=== PATIENT | female | born 2000 | race Hispanic/Latino ===

== ENCOUNTER 2022-01-28 17:21 | Emergency (ER) | payer OTHER, SELFPAY ==
--- NOTE | 2022-01-28 17:23 | ED.CHESTPAIN ---
HPI - Chest Pain General Chief Complaint: Nausea/Vomiting/Diarrhea Stated Complaint: Chest Pain,Vomiting Time Seen by Provider: 01/28/22 17:23 Source: patient Mode of arrival: ambulatory Limitations: no limitations History of Present Illness HPI narrative: Ursula is a 21-year-old female patient presenting to the clinic today with complaints of chest pain and vomiting since last night. She reports symptoms started with a slight headache and vomiting last night and she developed chest pain this morning when she awoken. She is 5 to 6 months . She reports pain to the chest is worse with inspiration. She does not feel as though she aspirated while vomiting. She denies any fever or chills. She is having some left-sided flank pain. She denies feeling nauseous currently. No vomiting today Related Data Home Medications Medication Instructions Recorded Confirmed Alive Premium 1 tab-cap PO DAILY 01/28/22 01/28/22 Allergies Allergy/AdvReac Type Severity Reaction Status Date / Time No Known Allergies Allergy Verified 01/28/22 17:26 Review of Systems Review of Systems: Pertinent positives per HPI. Patient denies any fever, chills, rash, visual changes, dizziness, cough, runny nose, sore throat, shortness of breath,palpitations, nausea,diarrhea, constipation, abdominal pain, or any urinary issues. PMFSH Comments At the time of my signature, I reviewed and agree with the nursing past medical, surgical, social, and family history. There is no relevant family history pertinent to the patient complaint. Exam Narrative: General: Well-developed, well nourished, in no apparent distress Head: Normocephalic, atraumatic Eyes: Pupils equally round and reactive to light bilaterally, EOM intact, sclera and conjunctive clear, no discharge, lids normal Ears: TMs intact and clear, ear canals clear, no drainage, grossly hearing normal. Nose: Nares patent, no discharge, no inflammation, no sinus tenderness. Mouth: Oropharynx without lesions or masses, good dentition, MMM. Neck: Supple, trachea midline, no enlargement of anterior or posterior cervical nodes, no thyroid masses or goiter palpable. Chest: Normal appearance, even rise and fall of chest wall with respirations, tender to palpation over the mid and left chest wall Cardio: Regular rate and rhythm, s1 and s2 normal, no murmur appreciated. Resp: Clear to auscultation bilaterally anteriorly and posteriorly, no rhonchi, rales, wheezing or rubs Abdomen: Soft, pliable, nontender to light palpation, bowel sounds present all 4 quadrants, no organomegaly, positive left CVAT tenderness Course Course Emergency Course: Portions of this record may have been created with voice recognition software. Level of Care: Express Care Visit Vital Signs Vital signs: Vital Signs Temperature 37.0 C 01/28/22 17:30 Pulse Rate 107 H 01/28/22 17:30 Respiratory Rate 18 01/28/22 17:30 Blood Pressure 136/76 01/28/22 17:30 Pulse Oximetry 100 01/28/22 17:30 Oxygen Delivery Room Air 01/28/22 17:30 Temperature 37.0 C 01/28/22 17:30 Pulse Rate 107 H 01/28/22 17:30 Respiratory Rate 18 01/28/22 17:30 Blood Pressure 136/76 01/28/22 17:30 Pulse Oximetry 100 01/28/22 17:30 Oxygen Delivery Room Air 01/28/22 17:30 Vital signs reviewed MDM - Chest Pain MDM Narrative Medical decision making narrative: At the time of visit patient is resting comfortably on the exam table. Patient is 5 to 6 months . I suspect the patient has acute mild dehydration, vomiting with , chest wall pain due to inflammation from vomiting, and urinary tract infection. I will place the patient on a course of Keflex as well as giving her a prescription for some Zofran and encouraged her to drink plenty of fluids. Supportive measures were discussed with the patient she voiced understanding of discharge instructions and agrees to treatment plan Differential Di
[2022-01-28 17:30] VITALS: BP 136/76; PULSE 107; RESP 18; TEMP 37; O2SAT 100
--- NOTE | 2022-01-28 17:36 | ECG_ITS ---
Measurements Intervals [place] Rate: 110 P: 54 TN: 137 QRS: 64 QRSD: 83 T: 33 QT: 320 QTc: 433 Interpretive Statements SINUS TACHYCARDIA ABNORMAL RHYTHM ECG NO PREVIOUS ECG AVAILABLE FOR COMPARISON Electronically Signed On 01-29-2022 13:11:27 CDT by Dalia Sanabria M.D.
== END 2022-01-28 18:11 | disposition home or self-care (01) ==
PROVIDERS: Emergency Provider Nurse Practitioner Family
DX: O23.10 Infections of bladder in pregnancy, unspecified trimester (principal); N30.00 Acute cystitis without hematuria; O21.9 Vomiting of pregnancy, unspecified; Z3A.00 Weeks of gestation of pregnancy not specified
CPT/HCPCS: 81003; 87077; 87086; 87186; 93005; 99213; G0463

== ENCOUNTER 2022-06-07 14:03 | Outpatient (CLI) | payer OTHER, SELFPAY ==
--- NOTE | ~2022-06-07 | US_ITS ---
EXAMINATION: US OB limited w BPP DATE: 06/07/2022 15:32 INDICATION: Hypertension during third trimester . Assess biophysical profile and amniotic fl uid index. TECHNIQUE: Real-time pelvic ultrasound was performed. The interpreting radiologist was not present fo r the study. COMPARISON: None. FINDINGS: There is a single living fetus in breech presentation. The placenta is anterior. heart rate is 152 beats per minute (bpm). Amniotic fluid index measures 11.6 cm which is normal (5th%-95%: 7.2-22. 6 cm at 39 weeks estimated gestational age). Biophysical profile performed by the technologist: breathing (30 sec sustained breathing in 30 minutes): 2 out of 2 movement (3 gross body movements in 30 minutes): 2 out of 2 tone (one episode of bmunxqu-vdmoyenim-wldelyo limb movement): 2 out of 2 Amniotic fluid pocket (2 cm): 2 out of 2 Total score: 8 out of 8 IMPRESSION: 1. Single living fetus in breech presentation with heart rate of 152 bpm. 2. Biophysical profile 8 out of 8. 3. Normal amniotic fluid index of 11.6 cm . Reviewed, dictated and finalized at location A. ING SAW OPERATOR
[2022-06-07 14:36] VITALS: BP 140/91; PULSE 99
[2022-06-07 14:45] VITALS: BP 140/91; PULSE 104; PULSE 99
[2022-06-07 14:49] LABS: Basophils Percent Auto 0.2 % (0.2-1.2); Eosinophils Absolute Auto 0.1 K/mm3 (0-0.3); Eosinophils Percent Auto 0.6 % (0-4.4); Hemoglobin 12.4 g/dL (12.0-15.0); Immature Granulocyte Absolute 0.06 K/mm3 (0.00-0.031); Immature Granulocyte Percent A 0.7 % (0-0.5); Lymphocytes Absolute Auto 1.55 K/mm3 (0.9-3.2); Mean Corpuscular HGB Conc 32.6 g/dl (32-36); Mean Corpuscular Hemoglobin 26.7 pg (26-34); Mean Corpuscular Volume 81.7 fl (80-100); Mean Platelet Volume 11.1 fl (7.4-10.4); Monocytes Absolute Auto 1.1 K/mm3 (0.1-0.6); Monocytes Percent Auto 12.9 % (2.6-8.5); Neutrophils Absolute Auto 5.4 K/mm3 (1.3-6.7); Neutrophils Percent Auto 66.6 % (45.5-73.1); Platelet Count Result 223 k/mm3 (150-375); Red Blood Count 4.65 M/mm3 (4.2-5.4); Red Cell Distribution Width 16.5 % (11.5-14.5); White Blood Count 8.1 K/mm3 (4.5-10.0)
[2022-06-07 14:50] LABS: Creatinine Urine 53.5 mg/dL; Total Protein Urine Random 8 mg/dL; Ur Ttl Prot Creatinine Ratio 0.15 mg/mg (0-0.20)
[2022-06-07 14:54] LABS: Alanine Aminotransferase 15 U/L (6-35); Albumin Level 3.7 g/dL (3.5-5.1); Alkaline Phosphatase 194 U/L (38-126); Anion Gap 7 mmol/L (8-16); Aspartate Amino Transferase 18 U/L (14-36); Bilirubin,Total 0.4 mg/dL (0.2-1.3); Blood Urea Nitrogen 5 mg/dL (7-17); Carbon Dioxide 23 mmol/L (22-30); Chloride 104 mmol/L (98-107); Estimated Glomerular Filt Rate > 60; Glucose 104 mg/dL (65-110); Potassium 3.7 mmol/L (3.4-5.0); Sodium 134 mmol/L (137-145); Uric Acid 4.4 mg/dL (2.5-7.5)
[2022-06-07 15:00] VITALS: BP 138/90; PULSE 92
--- NOTE | 2022-06-07 15:25 | PC.NURSE ---
1510--Report to Dr. Arce re: lab results, reactive NST and fhr tracing. Orders for BPP with AMANDA.
== END 2022-06-07 15:40 | disposition home or self-care (01) ==
LOC: ANHOBOP 14:18 → ANHOBPP 14:22
PROVIDERS: Visit Provider Obstetrics & Gynecology
DX: O13.9 Gestational [pregnancy-induced] hypertension without significant proteinuria, unspecified trimester (principal); Z3A.00 Weeks of gestation of pregnancy not specified
CPT/HCPCS: 36415; 59025; 76815; 76819; 80053; 82570; 84156; 84550; 85025; 99199

== ENCOUNTER 2022-06-10 22:31 | Inpatient (IN) | payer OTHER, SELFPAY ==
[2022-06-11] VITALS (99 sets, daily range): BP systolic 114–196; BP diastolic 62–165; PULSE 78–125; RESP 13–20; TEMP 36.2–36.8; O2SAT 97–100; BMI 32.5
[2022-06-11 01:07] LABS: Basophils Percent Auto 0.2 % (0.2-1.2); Eosinophils Absolute Auto 0.1 K/mm3 (0-0.3); Eosinophils Percent Auto 0.8 % (0-4.4); Hematocrit 35.5 % (37.0-47.0); Hemoglobin 11.7 g/dL (12.0-15.0); Immature Granulocyte Absolute 0.07 K/mm3 (0.00-0.031); Immature Granulocyte Percent A 0.7 % (0-0.5); Lymphocytes Absolute Auto 2.38 K/mm3 (0.9-3.2); Lymphocytes Percent Auto 24.2 % (18.3-44.2); Mean Corpuscular Volume 81.8 fl (80-100); Mean Platelet Volume 11.7 fl (7.4-10.4); Monocytes Absolute Auto 1.4 K/mm3 (0.1-0.6); Monocytes Percent Auto 14.4 % (2.6-8.5); Neutrophils Absolute Auto 5.9 K/mm3 (1.3-6.7); Neutrophils Percent Auto 59.7 % (45.5-73.1); Platelet Count Result 202 k/mm3 (150-375); Red Blood Count 4.34 M/mm3 (4.2-5.4); Red Cell Distribution Width 16.5 % (11.5-14.5); White Blood Count 9.9 K/mm3 (4.5-10.0)
[2022-06-11 01:17] LABS: Alanine Aminotransferase 14 U/L (6-35); Albumin Level 3.5 g/dL (3.5-5.1); Alkaline Phosphatase 195 U/L (38-126); Anion Gap 6 mmol/L (8-16); Aspartate Amino Transferase 19 U/L (14-36); Bilirubin,Total 0.4 mg/dL (0.2-1.3); Blood Urea Nitrogen 8 mg/dL (7-17); Calcium 8.8 mg/dL (8.4-10.2); Carbon Dioxide 22 mmol/L (22-30); Chloride 106 mmol/L (98-107); Estimated Glomerular Filt Rate > 60; Glucose 82 mg/dL (65-110); Potassium 3.8 mmol/L (3.4-5.0); Sodium 134 mmol/L (137-145)
[2022-06-11 01:30] LABS: Uric Acid 3.9 mg/dL (2.5-7.5)
[2022-06-11] MEDS: OXYTOCIN 30 UNITS/NS 500 ML 30 UNITS/500 ML BAG IV CONT (01:43)
--- NOTE | 2022-06-11 01:53 | LDADM ---
This patient, Raiza Perez, was admitted to Labor/Delivery/Recovery 102 on 06/10/22 at 22:31. Plans for labor, pain management and were discussed with patient. Patient/family oriented to hospital policies and general routines including ID bracelet, bed and alarms, visiting hours, pain management, procedures, bathroom and other care routines, personal items, smoking policy, room service/diet and guest tray routines, security routines, and visiting hours. Patient/Family are encouraged to report perceived risks to care and to ask questions if they do not understand what they are told or what they should do. See OBIX for further documentation.
--- NOTE | 2022-06-11 05:46 | PC.NURSE ---
Dr. Arce called for update on patient. 2 severe blood pressures reviewed with Dr. Arce. Orders to send a protein/creatine ration. Orders to watch next blood pressure since her first severe BP was during her SVE.
--- NOTE | 2022-06-11 06:18 | WPDANESEPP ---
Anes - Eval Pre Procedure Procedure: labor epidural Date/Time: 06/11/22 06:18 Surgeon: jessi Preop Diagnosis: pain during labor Pre Op Diagnosis: Contractions Patient Data Age: 21 Gender: F Height: 1.63 m Weight: 86 kg Last Vital Signs Temp 36.2 C L 06/11/22 05:35 Pulse 90 06/11/22 06:16 BP 147/93 H 06/11/22 06:16 O2 Del Method Room Air 06/11/22 01:52 Allergies Allergy/AdvReac Type Severity Reaction Status Date / Time No Known Allergies Allergy Verified 06/11/22 01:50 Home Medications Medication Instructions Recorded Confirmed Type Alive Premium 1 tab-cap PO DAILY 01/28/22 06/11/22 History Laboratory Tests 06/11/22 06/11/22 06/11/22 00:58 00:58 00:58 WBC 9.9 K/mm3 K/mm3 (4.5-10.0) RBC 4.34 M/mm3 M/mm3 (4.2-5.4) Hgb 11.7 g/dL L g/dL (12.0-15.0) Hct 35.5 % L % (37.0-47.0) MCV 81.8 fl fl (80-100) MCH 27.0 pg pg (26-34) MCHC 33.0 g/dl g/dl (32-36) RDW 16.5 % H % (11.5-14.5) Plt Count 202 k/mm3 k/mm3 (150-375) MPV 11.7 fl H fl (7.4-10.4) Immature Gran % (Auto) 0.7 % H % (0-0.5) Neut % (Auto) 59.7 % % (45.5-73.1) Lymph % (Auto) 24.2 % % (18.3-44.2) [place] % (Auto) 14.4 % H % (2.6-8.5) Eos % (Auto) 0.8 % % (0-4.4) Baso % (Auto) 0.2 % % (0.2-1.2) Lymph # (Auto) 2.38 K/mm3 K/mm3 (0.9-3.2) [place] # (Auto) 1.4 K/mm3 H K/mm3 (0.1-0.6) Eos # (Auto) 0.1 K/mm3 K/mm3 (0-0.3) Baso # (Auto) 0.0 K/mm3 K/mm3 (0.0-0.1) Abs Immat Gran (auto) 0.07 K/mm3 H K/mm3 (0.00-0.031) Absolute Neuts (auto) 5.9 K/mm3 K/mm3 (1.3-6.7) Absolute Nucleated RBC 0.0 K/mm3 K/mm3 (0.0-0.012) Nucleated RBC % 0.0 % % (0.0-0.2) Sodium 134 mmol/L L mmol/L (137-145) Potassium 3.8 mmol/L mmol/L (3.4-5.0) Chloride 106 mmol/L mmol/L (98-107) Carbon Dioxide 22 mmol/L mmol/L (22-30) Anion Gap 6 mmol/L L mmol/L (8-16) BUN 8 mg/dL mg/dL (7-17) Creatinine 0.40 mg/dL L mg/dL (0.7-1.0) Estim Creat Clear Calc Not Reportable Estimated GFR > 60 (59 - ) Glucose 82 mg/dL mg/dL (65-110) Uric Acid 3.9 mg/dL mg/dL (2.5-7.5) Calcium 8.8 mg/dL mg/dL (8.4-10.2) Total Bilirubin 0.4 mg/dL mg/dL (0.2-1.3) AST 19 U/L U/L (14-36) ALT 14 U/L U/L (6-35) Alkaline Phosphatase 195 U/L H U/L (38-126) Total Protein 6.0 g/dL L g/dL (6.3-8.2) Albumin 3.5 g/dL g/dL (3.5-5.1) U Random Total Protein Urine Creatinine Protein/Creat Ratio 2 RPR Blood Type Antibody Screen 06/11/22 06/11/22 06/11/22 00:58 00:58 06:03 WBC RBC Hgb Hct MCV MCH MCHC RDW Plt Count MPV Immature Gran % (Auto) Neut % (Auto) Lymph % (Auto) [place] % (Auto) Eos % (Auto) Baso % (Auto) Lymph # (Auto) [place] # (Auto) Eos # (Auto) Baso # (Auto) Abs Immat Gran (auto) Absolute Neuts (auto) Absolute Nucleated RBC Nucleated RBC % Sodium Potassium Chloride Carbon Dioxide Anion Gap BUN Creatinine Estim Creat Clear Calc Estimated GFR Glucose Uric Acid Calcium Total Bilirubin AST ALT Alkaline Phosphatase Total Protein Albumin
[2022-06-11 06:25] LABS: Creatinine Urine 62.3 mg/dL; Total Protein Urine Random 7 mg/dL; Ur Ttl Prot Creatinine Ratio 0.11 mg/mg (0-0.20)
--- NOTE | 2022-06-11 06:53 | PM.IMHP ---
H&P: HPI History of Present Illness Date/Time: 06/11/22 06:53 Chief Complaint: elevated BPs Narrative: Raiza is a 21yo G1 who presented with contractions last night that resolved but had elevated BPs, some with diastolics in 100s, so she stayed for induction of labor. Had two back to back severe pressures while having cervix checked overnight, otherwise have all been normal or mildly elevated. Denies sx of PreE, labs normal, PC ratio pending. Review of Systems Review of Systems: All systems reviewed & are unremarkable except as noted in HPI and below PMFSH Past Medical History Medical History (Updated 06/11/22 @ 06:55 by January Arce MD) IUP (intrauterine ), incidental Surgical History Surgical History (Updated 06/11/22 @ 06:19 by Josefina Marti CRNA) H/O brain surgery Family History Family History (Updated 05/15/22 @ 12:46 by Melissa Victor RN) Father Hypertension Diabetes mellitus Mother Hypertension Social History Social History Smoking status: Never smoker Substance use: never Lack of Transportation: No Lack of Food: Never True Current Housing: I Have Housing Concerned About Future Housing: No Difficulty Paying Gas/Electric Bills: No Difficulty Paying for Meds: No Currently Unemployed: No Education: High School Diploma/GED Difficulty w/ Childcare or Family Care: No Spiritual care concerns: No Meds Home Medications and Allergies Home Medications Medication Instructions Recorded Confirmed Type Alive Premium 1 tab-cap PO DAILY 01/28/22 06/11/22 History Allergies Allergy/AdvReac Type Severity Reaction Status Date / Time No Known Allergies Allergy Verified 06/11/22 01:50 Vital Signs Vital Signs - 24 hr 06/11/22 00:30 06/11/22 01:01 06/11/22 01:30 Temperature Pulse Rate 89 94 88 Blood Pressure 136/97 H 141/92 H 128/67 Oxygen Delivery 06/11/22 02:00 06/11/22 02:30 06/11/22 03:00 Temperature 97.3 F L Pulse Rate 91 91 97 Blood Pressure 130/84 124/69 132/81 Oxygen Delivery 06/11/22 03:30 06/11/22 04:00 06/11/22 04:30 Temperature Pulse Rate 87 88 104 H Blood Pressure 115/67 115/78 142/91 H Oxygen Delivery 06/11/22 05:16 06/11/22 05:31 06/11/22 05:35 Temperature 97.2 F L Pulse Rate 95 93 Blood Pressure 148/62 H 176/102 H Oxygen Delivery 06/11/22 05:46 06/11/22 06:01 06/11/22 06:16 Temperature Pulse Rate 93 95 90 Blood Pressure 164/98 H 144/93 H 147/93 H Oxygen Delivery 06/11/22 06:31 06/11/22 06:46 06/11/22 01:52 Temperature Pulse Rate 93 117 H Blood Pressure 147/91 H 136/93 H Oxygen Delivery Room Air Exam Const: General: no acute distress Resp: Effort & Inspection: normal respiratory effort Auscultation: clear to auscultation bilaterally Cardio: Rate: regular rate Rhythm: regular rhythm GI: GI Palp: Yes Soft to palpation Extrem: General: normal to inspection H&P: Results Labs Labs: Short CBC 06/11/22 Range/Units 00:58 WBC 9.9 (4.5-10.0) K/mm3 Hgb 11.7 L (12.0-15.0) g/dL Hct 35.5 L (37.0-47.0) % Plt Count 202 (150-375) k/mm3 [facility] 06/11/22 00:58 Sodium 134 L Potassium 3.8 Chloride 106 Carbon Dioxide 22 BUN 8 Creatinine 0.40 L Glucose 82 Calcium 8.8 Liver Function 06/11/22 Range/Units 00:58 Total Bilirubin 0.4 (0.2-1.3) mg/dL AST 19 (14-36) U/L ALT 14 (6-35) U/L Alkaline Phosphatase 195 H (38-126) U/L Albumin 3.5 (3.5-5.1) g/dL Assessment and Plan Assessment and plan (1) Gestational hypertension: Code(s): O13.9 - Gestational [-induced] hypertension without significant proteinuria, unspecified trimester Status: Acute Plan IOL with pitocin AROM clear, 5 cm FHT category 1 GBS neg magnesium if further severe pressures PC ratio pending
--- NOTE | 2022-06-11 07:13 | P.PNOB_ITS ---
OB - PN: Subj Subjective Date/time seen: 06/11/22 07:13 Patient comments: no complaints and pain well controlled baby status: doing well and bottle feeding well Narrative: Would like DC home today. OB - PN: Obj Data Labs 06/11/22 00:58 06/11/22 00:58 Labs: Laboratory Results - last 24 hr 06/11/22 06/11/22 06/11/22 00:58 00:58 00:58 WBC 9.9 RBC 4.34 Hgb 11.7 L Hct 35.5 L MCV 81.8 MCH 27.0 MCHC 33.0 RDW 16.5 H Plt Count 202 MPV 11.7 H Immature Gran % (Auto) 0.7 H Neut % (Auto) 59.7 Lymph % (Auto) 24.2 [place] % (Auto) 14.4 H Eos % (Auto) 0.8 Baso % (Auto) 0.2 Lymph # (Auto) 2.38 [place] # (Auto) 1.4 H Eos # (Auto) 0.1 Baso # (Auto) 0.0 Abs Immat Gran (auto) 0.07 H Absolute Neuts (auto) 5.9 Absolute Nucleated RBC 0.0 Nucleated RBC % 0.0 Sodium 134 L Potassium 3.8 Chloride 106 Carbon Dioxide 22 Anion Gap 6 L BUN 8 Creatinine 0.40 L Estim Creat Clear Calc Not Reportable Estimated GFR > 60 Glucose 82 Uric Acid 3.9 Calcium 8.8 Total Bilirubin 0.4 AST 19 ALT 14 Alkaline Phosphatase 195 H Total Protein 6.0 L Albumin 3.5 U Random Total Protein Urine Creatinine Blood Type Antibody Screen 06/11/22 06/11/22 00:58 06:03 WBC RBC Hgb Hct MCV MCH MCHC RDW Plt Count MPV Immature Gran % (Auto) Neut % (Auto) Lymph % (Auto) [place] % (Auto) Eos % (Auto) Baso % (Auto) Lymph # (Auto) [place] # (Auto) Eos # (Auto) Baso # (Auto) Abs Immat Gran (auto) Absolute Neuts (auto) Absolute Nucleated RBC Nucleated RBC % Sodium Potassium Chloride Carbon Dioxide Anion Gap BUN Creatinine Estim Creat Clear Calc Estimated GFR Glucose Uric Acid Calcium Total Bilirubin AST ALT Alkaline Phosphatase Total Protein Albumin U Random Total Protein 7 Urine Creatinine 62.3 Blood Type O Positive Antibody Screen Negative OB - PN A/P Plan day: 1 Plan: routine care and discharge home Comments: circumcision done after consenting. home if ok with peds (GBS pos, adequately treated) Time Spent With Patient Time: Total time spent is greater than 50% in coordination of care (as documented) at patient's floor/unit and/or counseling patient: Time with patient: less than 15 minutes Exam Narrative: NAD abdomen soft, nontender, fundus firm below the umbilicus Extremities nontender, 1+ edema
--- NOTE | 2022-06-11 07:17 | PM.OBDSVD ---
DS: Admitting Diagnosis Discharge Date 06/14/22 Admitting Diagnosis term IUP DS: Discharge Diagnosis Discharge Diagnosis (1) delivery delivered: Code(s): O82 - Encounter for delivery without indication Status: Acute OB - DS: Summary Hospital Course Hospital Course: Raiza was admitted for elective IOL, but was found to be breech, so she had a primary CS. Her post op course was uncomplicated and she was discharged home on POD 3. She did receive IV iron for anemia. OB Procedures : Ultrasound OB Procedures Intrapartum: OB Procedures: : None Peripartum Data Infant Delivery Method: Section complications: none Status at Discharge Functional status at discharge: independent ambulation Time Spent with Patient Time attestation: Total time spent providing and/or coordinating discharge services: Exam Narrative: NAD abdomen soft, appropriately tender Ext non tender, 1+ edema DS: Data Data Completed and Pending Labs on day of discharge: Labs from last 24 hours 06/11/22 06/11/22 06/11/22 06:03 00:58 00:58 WBC RBC Hgb Hct MCV MCH MCHC RDW Plt Count MPV Immature Gran % (Auto) Neut % (Auto) Lymph % (Auto) [place] % (Auto) Eos % (Auto) Baso % (Auto) Lymph # (Auto) [place] # (Auto) Eos # (Auto) Baso # (Auto) Abs Immat Gran (auto) Absolute Neuts (auto) Absolute Nucleated RBC Nucleated RBC % Sodium Potassium Chloride Carbon Dioxide Anion Gap BUN Creatinine Estim Creat Clear Calc Estimated GFR Glucose Uric Acid Calcium Total Bilirubin AST ALT Alkaline Phosphatase Total Protein Albumin U Random Total Protein 7 Urine Creatinine 62.3 Protein/Creat Ratio 2 Pending RPR Pending Blood Type O Positive Antibody Screen Negative 06/11/22 06/11/22 06/11/22 00:58 00:58 00:58 WBC 9.9 RBC 4.34 Hgb 11.7 L Hct 35.5 L MCV 81.8 MCH 27.0 MCHC 33.0 RDW 16.5 H Plt Count 202 MPV 11.7 H Immature Gran % (Auto) 0.7 H Neut % (Auto) 59.7 Lymph % (Auto) 24.2 [place] % (Auto) 14.4 H Eos % (Auto) 0.8 Baso % (Auto) 0.2 Lymph # (Auto) 2.38 [place] # (Auto) 1.4 H Eos # (Auto) 0.1 Baso # (Auto) 0.0 Abs Immat Gran (auto) 0.07 H Absolute Neuts (auto) 5.9 Absolute Nucleated RBC 0.0 Nucleated RBC % 0.0 Sodium 134 L Potassium 3.8 Chloride 106 Carbon Dioxide 22 Anion Gap 6 L BUN 8 Creatinine 0.40 L Estim Creat Clear Calc Not Reportable Estimated GFR > 60 Glucose 82 Uric Acid 3.9 Calcium 8.8 Total Bilirubin 0.4 AST 19 ALT 14 Alkaline Phosphatase 195 H Total Protein 6.0 L Albumin 3.5 U Random Total Protein Urine Creatinine Protein/Creat Ratio 2 RPR Blood Type Antibody Screen Discharge Plan Discharge Attending physician on discharge: January Arce Discharging Clinician: January Arce Anticipated Discharge Date/Time: 06/14/22 08:44 Patient Disposition: Home, Self-Care Activity: may drive after 2 weeks and pelvic rest Diet: regular Patient Instructions: Antibiotic Form Stand Alone Forms: General Discharge Information Follow-up/Referrals: January Arce MD [Physician] - 4 Weeks Discharge Medications: New hydrocodone-acetaminophen 5-325 mg Tablet 1 tablet PO Q4-5H PRN (Reason: Moderate Pain (4-6)) Qty: 40 0RF docusate sodium 100 mg Capsule 100 mg PO BID PRN (Reason: Constipation) Qty: 60 0RF ibuprofen 600 mg Tablet 600 mg PO Q6H PRN (Reason: Cramping) Qty: 60 0RF Continued Alive Premium 1 tab-cap PO DAILY Date of admission: 06/10/22 22:31 Primary Care Provider: PHYSICIAN,DIRECTOR CAMP Admitting Provider: January Arce Attending physician on admission: January Arce Condition: Stable
[2022-06-11] MEDS: fentaNYL CITRATE INJ (*CRX) 100 MCG/2 ML VIAL 50 MCG IV PUSH (07:23)
[2022-06-11] MEDS: LACTATED RINGERS 500 ML 999 ML IV CONT (07:25)
--- NOTE | 2022-06-11 09:53 | WPDHPUPDATE1 ---
History and Physical Update Update Date/Time: 06/11/22 09:53 History and Physical has been reviewed, including an updated exam of the patient. Breech, verified with US. Will proceed with primary CS. Discussed RBA with pt, consented. Will proceed. Risks, benefits, and alternatives have been discussed and questions answered. Patient agrees to proceed with procedure.
[2022-06-11 10:35] LABS: Rapid Plasma Reagin Non-Reactive (NonReactive)
[2022-06-11] MEDS: KETOROLAC 30 MG/ML VIAL (*BKC) IV PUSH ×2 (10:50→16:06)
--- NOTE | 2022-06-11 10:57 | PM.OBPRVD ---
OB - Delivery Note Procedure Delivery date: 06/11/22 Procedure: Procedures Operation Date: 06/11/22 09:45 <No data on this case meets the specified criteria> Primary low transverse section Events: Breech Presentation Induction method: Per Pitocin Protocol Delivery augmentation: Rupture of Membranes Route of delivery: Specimen: Yes (placenta) Quantitative Blood Loss (ml): 1,015 Anesthesia type: Epidural Disposition: Floor Complications: none Narrative: The patient was taken to the OR and had her epidural anesthesia dosed adequately. She was placed in dorsal supine position with left lateral tilt. SCDs and fields had been placed. She was prepped and draped in the normal sterile fashion. A Pfannensteil skin incision was made and carried through to the underlying layer of fascia. The fascia was incised in the midline and then extended laterally using Wiley scissors. The muscles were in the midline and the peritoneum was entered bluntly. The peritoneal incision was extended inferiorly and superiorly with care to avoid the bladder. The bladder blade was then inserted, the vesicouterine peritoneum was grasped, incised with Metzenbaum scissors, and a bladder flap created. The bladder blade was reinserted. A low transverse uterine incision was made with a scalpel and extended bluntly. AROM was performed and fluid was noted to be clear. The baby was delivered in breech presentation without difficulty. The baby's oropharynx was suctioned. After 30 seconds, the cord was clamped and cut and the infant was handed off. Cord blood was obtained and the placenta was then removed manually. The uterus was exteriorized. A moist lap sponge was used to curette the endometrium. The uterine incision was then closed with two layers of 0-Vicryl in a running, locking fashion. Good hemostasis was noted. The posterior cul de sac was irrigated with normal saline and cleared of all clot and debris. The uterus was returned to the abdomen. Both lateral gutters were then irrigated. The rectus muscles were inspected and found to be hemostatic. The fascia was reapproximated using 0-Vicryl in running fashion. The subcutaneous tissue was irrigated with normal saline and made hemostatic with Bovie electrocautery. The skin was then closed with absorbable sydni. Steri strips and a bandage were applied. The uterus was evacuated. The patient tolerated the procedure very well. All counts were correct. She was taken to the recovery room in good condition. Baby Date of : 06/11/22 Time of : 10:27 Weeks of gestation at delivery: 40 Infant gender: Male Weight (pounds): 9 Weight (ounces): 5 presentation: breech Placenta delivery description: Manual Removal Cord Vessel Description: 3 Vessels score one minute: 8 score five minutes: 9
[2022-06-11] MEDS: fentaNYL CITRATE INJ (*CRX) 100 MCG/2 ML VIAL IV PUSH ×4 (12:13→13:02)
[2022-06-11] MEDS: HYDROcodone/acetaminophen (*CRX) 10-325 MG TABLET 1 TAB PO ×3 (14:15→23:22)
[2022-06-11] MEDS: SIMETHICONE 80 MG TAB.CHEW PO (16:07)
[2022-06-11] MEDS: DEXTROSE 5%/0.45% SOD CHL 1,000 ML 125 ML IV CONT (17:15)
[2022-06-11] MEDS: DOCUSATE SODIUM 100 MG CAPSULE PO (17:15)
[2022-06-11] MEDS: IBUPROFEN 600 MG TABLET PO (23:22)
[2022-06-12 03:55] VITALS: BP 128/85; PULSE 87; RESP 16; TEMP 36.6
[2022-06-12] MEDS: HYDROcodone/acetaminophen (*CRX) 10-325 MG TABLET 1 TAB PO ×5 (03:55→23:15)
[2022-06-12 05:27] LABS: Basophils Percent Auto 0.2 % (0.2-1.2); Eosinophils Absolute Auto 0.1 K/mm3 (0-0.3); Eosinophils Percent Auto 0.5 % (0-4.4); Hematocrit 26.2 % (37.0-47.0); Hemoglobin 8.3 g/dL (12.0-15.0); Immature Granulocyte Absolute 0.08 K/mm3 (0.00-0.031); Immature Granulocyte Percent A 0.7 % (0-0.5); Lymphocytes Absolute Auto 1.67 K/mm3 (0.9-3.2); Lymphocytes Percent Auto 14.4 % (18.3-44.2); Mean Corpuscular HGB Conc 31.7 g/dl (32-36); Mean Corpuscular Hemoglobin 26.5 pg (26-34); Mean Corpuscular Volume 83.7 fl (80-100); Mean Platelet Volume 12.7 fl (7.4-10.4); Monocytes Absolute Auto 1.2 K/mm3 (0.1-0.6); Monocytes Percent Auto 10.1 % (2.6-8.5); Neutrophils Absolute Auto 8.6 K/mm3 (1.3-6.7); Neutrophils Percent Auto 74.1 % (45.5-73.1); Platelet Count Result 151 k/mm3 (150-375); Red Blood Count 3.13 M/mm3 (4.2-5.4); Red Cell Distribution Width 17.1 % (11.5-14.5); White Blood Count 11.6 K/mm3 (4.5-10.0)
--- NOTE | 2022-06-12 07:23 | P.PNOB_ITS ---
OB - PN: Subj Subjective Date/time seen: 06/12/22 07:23 Patient comments: no complaints and incisional pain baby status: doing well [place] feeding status: exclusively breast feeding Narrative: POD 1 from primary CS. Doing well. Normal lochia. Eating, ambulating, fields out. Baby not latching well. OB - PN: Obj Data Labs 06/12/22 03:48 06/11/22 00:58 Labs: Laboratory Results - last 24 hr 06/11/22 06/12/22 00:58 03:48 WBC 11.6 H RBC 3.13 L Hgb 8.3 L D Hct 26.2 L MCV 83.7 MCH 26.5 MCHC 31.7 L RDW 17.1 H Plt Count 151 MPV 12.7 H Immature Gran % (Auto) 0.7 H Neut % (Auto) 74.1 H Lymph % (Auto) 14.4 L [place] % (Auto) 10.1 H Eos % (Auto) 0.5 Baso % (Auto) 0.2 Lymph # (Auto) 1.67 [place] # (Auto) 1.2 H Eos # (Auto) 0.1 Baso # (Auto) 0.0 Abs Immat Gran (auto) 0.08 H Absolute Neuts (auto) 8.6 H Absolute Nucleated RBC 0.0 Nucleated RBC % 0.0 RPR Non-reactive OB - PN A/P Assessment and Plan (1) delivery delivered: Code(s): O82 - Encounter for delivery without indication Status: Acute (2) Anemia due to blood loss: Code(s): D50.0 - Iron deficiency anemia secondary to blood loss (chronic) Status: Acute Plan day: 1 Plan: routine care Comments: venofer home friday probably consult Time Spent With Patient Time: Total time spent is greater than 50% in coordination of care (as documented) at patient's floor/unit and/or counseling patient: Exam Narrative: NAD abdomen soft, appropriately tender, incision bandaged Extremities nontender with 1+ edema
[2022-06-12] MEDS: IBUPROFEN 600 MG TABLET PO ×3 (07:30→20:16)
[2022-06-12] MEDS: MULTIVIT/MIN/PREN/FOL AC/IRON TABLET 1 TAB PO (07:30)
[2022-06-12] MEDS: SIMETHICONE 80 MG TAB.CHEW PO ×5 (07:30→23:15)
[2022-06-12] MEDS: POLYSACCHARIDE IRON COMPLEX 150 MG CAPSULE PO ×2 (07:30→17:15)
[2022-06-12] MEDS: DOCUSATE SODIUM 100 MG CAPSULE PO ×2 (07:30→17:15)
[2022-06-12 08:00] VITALS: BP 122/85; PULSE 104; RESP 16; TEMP 37.2; O2SAT 99
[2022-06-12] MEDS: IRON SUCROSE COMPLEX 200 MG in SODIUM CHLORIDE 0.9% IV 50 ML 120 MG IVPB (09:45)
[2022-06-12] MEDS: SODIUM CHLORIDE 0.9% IV 250 ML 25 ML (10:11)
[2022-06-12 12:20] VITALS: BP 128/77; PULSE 64; RESP 18; TEMP 36.6; O2SAT 98
--- NOTE | 2022-06-12 13:03 | PC.NURSE ---
0820 - Infant is in the nursery. 0971 - Primary RN is assisting patient in the restroom. [id number] Introductions were made, then consulted with patient to assess needs related to . Mother led the conversation with her?plans to feed?her infant and the?experience so far. Resources provided for inpatient and outpatient services with the feeding sheet and mom/baby guide. Mother voiced understanding of information and requests assistance because her infant will not wake up to breastfeed. Mother led the conversation with her?plans to feed?her and the?experience so far. Mother works well with her with encouragement and education. Encouraged understanding of the benefits of skin to skin (demonstrating unwrapping and placing upright on her chest), stimulating with massage touch, changing positions to encourage wakefulness, how to watch for early feeding cues, responsive feeding, feeding on demand (aiming for 8-12 times in 24 hours, about every 2-3 hours), milk production, building/maintaining a milk supply, duration of feeding, signs of adequate intake/output and how to record on the feeding sheet. Reviewed positioning and ear, shoulder, hip alignment, supporting the breast to facilitate a deep latch, asymmetrical latch (off-center), leading with the chin with a big, open, wide gape and body close to mother. Infant latched optimally to the right breast in football position. Education given to mother of how to visualize suck/swallow ratios and listen for drinking at the breast. Infant was able to maintain latch without discomfort to mother for 30 minutes. Nipple care reviewed with optimal latch and good positioning. Reviewed good handwashing when or touching the breast/nipples to prevent infection. Resources used to facilitate learning were used with the visual handouts, QR codes, tool, mom and baby guide. Mother voiced understanding of skin to skin, stimulating with massage touch, responsive feedings, hand expressed colostrum, talking to infant to encourage if it has been 2 -2.5 hours since the start of the last , to call if does not latch, or if there is discomfort with . Resources provided for inpatient/outpatient with the feeding sheet and the mom/baby guide. Mother voiced understanding of information, demonstrated learning and will call if there is a request for assistance. [phone] Mother called related to unable to latch to the left breast to offer the other side. Attempted to latch to the left breast. Infant appears to be content with arms and hands relaxed. Large transitional stool diaper changed and another attempt was made and infant is sleepy. Reviewed with mother stimulating with massage touch, responsive feedings, hand expressed colostrum, talking to to encourage if it has been 2 -2.5 hours since the start of the last , to call if does not latch, or if there is discomfort with . Mother voiced understanding of the education. Reported to the primary RN.
--- NOTE | 2022-06-12 14:16 | WPDANLDPN2 ---
Anes-Prog Note L&D Date/Time: 06/12/22 14:16 Neuro status: Neuro function grossly intact. Vital Signs: Last Vital Signs Temp 36.6 C 06/12/22 12:20 Pulse 64 06/12/22 12:20 Resp 18 06/12/22 12:20 BP 128/77 06/12/22 12:20 Pulse Ox 98 06/12/22 12:20 O2 Del Method Room Air 06/12/22 08:00 Pain score (VAS): 0 I/O: Intake & Output 06/11/22 06/12/22 06/12/22 23:59 07:59 15:59 Intake Total 2120 700 480 Output Total 150 1000 Balance 1970 -300 480 Patient feedback: Patient satisfied with anesthetic care.
--- NOTE | 2022-06-12 14:17 | WPDANLDNPN2 ---
Anes-Prog Note L&D-Neuraxial Date/Time: 06/12/22 14:17 Patient feedback: Patient satisfied with post-operative pain management.
[2022-06-12] MEDS: HYDROcodone/acetaminophen (*CRX) 5-325 MG TABLET 1 TAB PO ×2 (14:30→20:16)
--- NOTE | 2022-06-12 14:50 | PC.NURSE ---
[id number] Consulted with patient to assess needs related to after being called for assistance. Mother works well with her . Encouraged skin to skin and stimulating for wakefulness. Reviewed positioning and alignment, supporting breast, off-centered (asymmetrical latch) and leading with the chin with big, open, wide gape. latched optimally to the left breast in football and cross cradle position. Infant would not maintain on the left breast even with milk able to be hand expressed. After on/off 15 minutes on the left breast, was offered the right breast and maintained an optimal latch using the football positioning. Education given to mother of how to visualize suck/swallow ratios and listen for drinking at the breast. Infant was able to maintain latch without discomfort to mother and swallowing visualized. Nipple care reviewed with optimal latch, good positioning and using clean hands when feeding her and touching her breast. Resources used to facilitate learning were used from the mom and baby guide. Mother voiced understanding of the education shared, to call for assistance if the does not latch or if there is discomfort with . Reported to the primary RN.
[2022-06-12 17:15] VITALS: BP 121/71; PULSE 97; RESP 18; TEMP 37; O2SAT 98
[2022-06-12 19:03] VITALS: BP 122/79; PULSE 100; RESP 16; TEMP 36.4
[2022-06-12 23:15] VITALS: BP 126/79; PULSE 107; RESP 16; TEMP 36.5
[2022-06-13] MEDS: SIMETHICONE 80 MG TAB.CHEW PO (02:22)
[2022-06-13] MEDS: HYDROcodone/acetaminophen (*CRX) 5-325 MG TABLET 1 TAB PO ×4 (02:22→23:31)
[2022-06-13] MEDS: IBUPROFEN 600 MG TABLET PO ×4 (02:22→20:30)
[2022-06-13 05:25] VITALS: BP 119/64; PULSE 92; RESP 16; TEMP 36
[2022-06-13] MEDS: HYDROcodone/acetaminophen (*CRX) 10-325 MG TABLET 1 TAB PO ×3 (05:25→17:20)
[2022-06-13 07:30] VITALS: BP 143/86; PULSE 105; RESP 16; TEMP 36.9; O2SAT 100
--- NOTE | 2022-06-13 07:59 | P.PNOB_ITS ---
OB - PN: Subj Subjective Date/time seen: 06/13/22 07:59 Patient comments: no complaints, pain well controlled, tolerating diet and flatus present [place] baby status: doing well OB - PN: Obj Data Labs 06/12/22 03:48 06/11/22 00:58 OB - PN A/P Plan day: 1 Plan: routine care Comments: Iron infusion today. Will anticipate discharge tomorrow. Time Spent With Patient Time: Total time spent is greater than 50% in coordination of care (as documented) at patient's floor/unit and/or counseling patient: Time with patient: less than 15 minutes Review of Systems Review of Systems: All systems reviewed & are unremarkable except as noted in HPI and below Exam Narrative: Fundus firm. Vaginal flow controlled. Incision dry and intact. Negative homans. No redness, warmth, or pain of lower ext. Const: General: comfortable Chest: Breast/axilla inspection: normal inspection of the breasts Resp: Effort & Inspection: normal respiratory effort Auscultation: clear to auscultation bilaterally Cardio: Rate: regular rate GI: GI Palp: Yes Soft to palpation Psych: Appearance: grossly normal Affect: normal affect Attitude: cooperative Thought content: Yes Normal thought content present Judgement: Good judgement present (Psych)
[2022-06-13] MEDS: POLYSACCHARIDE IRON COMPLEX 150 MG CAPSULE PO ×2 (08:11→17:20)
[2022-06-13] MEDS: MULTIVIT/MIN/PREN/FOL AC/IRON TABLET 1 TAB PO (08:11)
[2022-06-13] MEDS: DOCUSATE SODIUM 100 MG CAPSULE PO ×2 (08:11→17:20)
[2022-06-13] MEDS: IRON SUCROSE COMPLEX 200 MG in SODIUM CHLORIDE 0.9% IV 50 ML 120 MG IVPB (09:24)
[2022-06-13 13:00] VITALS: BP 135/87; PULSE 108; RESP 16; TEMP 36.3; O2SAT 100
[2022-06-13] MEDS: TETANUS,DIPHTHERIA,AC PERTUSSIS ADULT (0.5 ML) BOOSTRIX IM (13:31)
--- NOTE | 2022-06-13 14:08 | PC.NURSE ---
0880 - Consulted with patient to assess needs. Mother states she just breastfed at 0700 and will call for the next session. [id number] Consulted with patient to assess needs related to . Mother led conversation with her experience with feeding baby so far. Mother works well with her infant with encouragement. Reviewed working with infant, supporting breast and how to protect the nipples with an optimal deep latch, good positioning, and good hand washing. Encouraged understanding the benefits of skin to skin, responding to feeding cues, frequencies of feeding 8-12 times in 24 hours (approximately 2-3 hours), duration of feedings, milk production, intake/output feeding sheet and signs of adequate intake encouraging swallowing at the breast. Reviewed positioning and alignment, supporting breast, off-centered (asymmetrical latch) and leading with the chin with big, open, wide gape. Infant latched optimally to the left breast in football position. Education given to mother of how to visualize suck/swallow ratios and listen for drinking at the breast. Infant was able to maintain latch without discomfort to mother. Nipple care reviewed with optimal latch, good positioning and using clean hands when feeding her and touching her breast. Encouraged mother, father and infant to actively eat. Encouraged mother to also hydrate. Resources used to facilitate learning were used from the visual handout, tool, mom and baby guide. Mother voiced understanding of the education shared, to call for assistance if the infant does not latch or if there is discomfort with . Reported to the primary RN. [id number] is not attempting to breastfeed at this time. Encouraged the maternal mother to comfort while mother takes a nap. [id number] Purposely rounded to assess needs. Mother works well with her infant with encouragement. Reviewed working with infant, supporting breast and how to protect the nipples with an optimal deep latch, good positioning, and good hand washing. Encouraged understanding the benefits of skin to skin, responding to feeding cues, milk production, hand expression and 1/2 tsp was spoon fed to the , then latched to the right breast using football positioning. Reviewed positioning and alignment, supporting breast, off-centered (asymmetrical latch) and leading with the chin with big, open, wide gape. Reviewed education of how to visualize suck/swallow ratios and listen for drinking at the breast. Infant was able to maintain latch without discomfort to mother. Mother is tired. Mother was encouraged and support persons encouraged as they demonstrate supporting measures to mother. Nipple care reviewed with optimal latch, good positioning and using clean hands when feeding her and touching her breast. Mother voiced understanding of the education shared, to call for assistance if the does not latch or if there is discomfort with . Reported to the primary RN.
[2022-06-13 16:30] VITALS: BP 122/77; PULSE 106; RESP 16; TEMP 36.8; O2SAT 99
[2022-06-13 20:10] VITALS: BP 131/77; PULSE 109; RESP 16; TEMP 37.2
[2022-06-14] MEDS: HYDROcodone/acetaminophen (*CRX) 5-325 MG TABLET 1 TAB PO ×2 (05:11→13:33)
[2022-06-14] MEDS: IBUPROFEN 600 MG TABLET PO ×2 (05:11→13:34)
[2022-06-14 07:30] VITALS: BP 122/63; PULSE 98; RESP 16; TEMP 36.8; O2SAT 100
--- NOTE | 2022-06-14 08:43 | P.PNOB_ITS ---
OB - PN: Subj Subjective Date/time seen: 06/14/22 08:43 Patient comments: no complaints and pain well controlled baby status: doing well and nursing well [place] feeding status: breast and bottle feeding Narrative: would like DC home today. OB - PN: Obj Data Labs 06/12/22 03:48 06/11/22 00:58 OB - PN A/P Plan day: 3 Plan: routine care and discharge home Comments: s/p IV iron home today DC instructions given Time Spent With Patient Time: Total time spent is greater than 50% in coordination of care (as documented) at patient's floor/unit and/or counseling patient: Exam Narrative: NAD abdomen soft, appropriately tender, incision CDI Extremities nontender with 1+ edema
[2022-06-14 09:00] VITALS: PULSE 98; RESP 16; O2SAT 100
[2022-06-14] MEDS: SIMETHICONE 80 MG TAB.CHEW PO ×2 (09:00→13:34)
[2022-06-14] MEDS: DOCUSATE SODIUM 100 MG CAPSULE PO (09:00)
[2022-06-14] MEDS: HYDROcodone/acetaminophen (*CRX) 10-325 MG TABLET 1 TAB PO (09:00)
[2022-06-14] MEDS: POLYSACCHARIDE IRON COMPLEX 150 MG CAPSULE PO (09:00)
[2022-06-14] MEDS: MEASLES,MUMPS,RUBELLA VACCINE 0.5 ML VIAL SUB-Q (09:00)
[2022-06-14] MEDS: MULTIVIT/MIN/PREN/FOL AC/IRON TABLET 1 TAB PO (09:00)
[2022-06-14 12:14] VITALS: BP 134/65; PULSE 97; RESP 16; TEMP 36.6; O2SAT 100
--- NOTE | 2022-06-14 12:21 | PC.NURSE ---
Patient viewed the discharge video Mother & Baby Care, The First Two Weeks in [place] with maternal grandmother. Patient was given the opportunity and encouraged to ask questions. Patient verbalized understanding of information shared and has been given the mother/baby guide for home reference.
--- NOTE | 2022-06-14 12:44 | PC.NURSE ---
[id number] Mother led the conversation with her experience last night and her decision to bottle feed her infant after and being inconsolable. She is confident in her ability to independently latch infant optimally without discomfort, pump if infant doesn't latch, then supplement to feed infant until her milk is to full volume. Reminded parents to use good handwashing technique to prevent infection. Mother is feeding appropriately for growth of infant and understands stimulating to eat if needed. has had appropriate feedings in the last 24 hours meets the outcomes for weight, output and jaundice at this time. Mother states she is confident to continue feeding her infant at home, when to call for assistance and denies any additional assistance or education at this time. Reinforced understanding of milk production, transition of milk, signs of adequate intake, transition of stool, prevention/relief of engorgement, responsive watching for feeding cues, the different methods of stimulating infant to breastfeed 2-3 hours after the start of the last feeding, paced bottle feeding, community resources, medication information reviewed per [facility] and when to call a provider using the resource of the hand out for paced bottle feeding, mom and baby guide/[facility] website. Mother voiced understanding of the education shared.
== END 2022-06-14 14:45 | disposition home or self-care (01) | DRG 540 ==
LOC: ANHLDR 06-11 07:17 → ANHOB2 06-11 13:30
PROVIDERS: Admitting Provider Obstetrics & Gynecology; Visit Provider Obstetrics & Gynecology
PROC: 10D00Z1 Extraction of Products of Conception, Low, Open Approach (ICD-10-PCS; CPT 59514; principal; 2022-06-11 09:45)
DX: O13.4 Gestational [pregnancy-induced] hypertension without significant proteinuria, complicating childbirth (principal); Z37.0 Single live birth; Z3A.39 39 weeks gestation of pregnancy; O32.1XX0 Maternal care for breech presentation, not applicable or unspecified; O90.81 Anemia of the puerperium; D62 Acute posthemorrhagic anemia; O36.8330 Maternal care for abnormalities of the fetal heart rate or rhythm, third trimester, not applicable or unspecified
CPT/HCPCS: 36415; 80053; 82570; 84156; 84550; 85025; 86592; 86850; 86900; 86901; 90710; 90715; A9270; J0131; J1756; J1885; J2274; J2405; J2590; J2795; J3010; J7050; J7120

== ENCOUNTER 2022-08-18 10:23 | Emergency (ER) | payer OTHER, SELFPAY ==
--- NOTE | 2022-08-18 10:28 | ED.URI ---
HPI - URI/Sore Throat General Chief Complaint: Ear Stated Complaint: Right Ear Irritation Time Seen by Provider: 08/18/22 10:28 Source: patient, RN notes reviewed and old records reviewed Mode of arrival: ambulatory Limitations: no limitations History of Present Illness HPI Narrative: 21-year-old female presents to the [facility] with complaints of right ear pain since , 3 days. Has been taken ibuprofen Currently Denies fevers. No other treatment prior to arrival. Denies any other signs or symptoms Onset (ago): day(s) (3) Related Data Allergies Allergy/AdvReac Type Severity Reaction Status Date / Time No Known Allergies Allergy Verified 08/18/22 10:29 Review of Systems Review of Systems: All systems reviewed & are unremarkable except as noted in HPI and below Constitutional: Constitutional: Reports no additional constitutional complaints Eyes: Eyes: Reports no additional eye complaints ENT: Reports as per HPI and Reports otalgia Cardiovascular: Cardiovascular: Reports no additional cardiovascular complaints, Denies chest pain and Denies dyspnea Respiratory: Respiratory: Reports no additional respiratory complaints, Denies chest congestion, Denies cough and Denies dyspnea Gastrointestinal: Gastrointestinal: Reports no additional gastrointestinal complaints, Denies abdominal pain, Denies nausea and Denies vomiting Musculoskeletal: Musculoskeletal: Reports no additional musculoskeletal complaints Integumentary/Breasts: Skin/Breast: Reports system reviewed and no additional complaints, except as docu Neurologic: Reports system reviewed and no additional complaints, except as documented Psychiatric: Psychiatric: Reports no additional psychiatric complaints Allergic/Immunologic: Allergic/Immunologic: Reports no additional allergic/immunologic complaints PMFSH Past Medical History Medical History IUP (intrauterine ), incidental Surgical History Surgical History H/O brain surgery Family History Family History Father Hypertension Diabetes mellitus Mother Hypertension Social History Social History Smoking status: Never smoker Substance use: never Lack of Transportation: No Lack of Food: Never True Current Housing: I Have Housing Concerned About Future Housing: No Difficulty Paying Gas/Electric Bills: No Difficulty Paying for Meds: No Currently Unemployed: No Education: High School Diploma/GED Difficulty w/ Childcare or Family Care: No Spiritual care concerns: No Comments At the time of my signature, I reviewed and agree with the nursing past medical, surgical, social, and family history. There is no relevant family history pertinent to the patient complaint. Exam Const: General: cooperative, healthy appearing, comfortable, no acute distress, well developed, alert and well nourished Nutritional Appearance: well nourished Orientation/consciousness: patient oriented x3 Limitations: no limitations HENMT: Head: normal to inspection Ears: hearing grossly normal bilaterally, external ears normal, TM normal on the left, EAC's normal, mastoids abnormal, no periauricular adenopathy and TM abnormal bulging on the right and erythematous on the right Face/Nose/Sinus: Normal external nose present, Normal nares present, Normal nasal mucous membranes and turbinates present and normal facial exam Face and sinus: normal facial exam Mouth: Yes Normal oral and palatal mucosa present, Yes lip normal and Yes moist mucous membranes Throat: posterior oropharynx normal and uvula midline Eyes: General: appearance normal, both eyes and all related structures Alignment and Position: alignment normal Periorbital: periorbital findings normal Conjunctivae: co
[2022-08-18 10:30] VITALS: BP 113/75; PULSE 79; RESP 18; TEMP 36.6; O2SAT 100
== END 2022-08-18 10:39 | disposition home or self-care (01) ==
PROVIDERS: Emergency Provider Nurse Practitioner
DX: H66.91 Otitis media, unspecified, right ear (principal)
CPT/HCPCS: 99213; G0463

== ENCOUNTER 2023-03-25 18:54 | Emergency (ER) | payer OTHER, SELFPAY ==
--- NOTE | 2023-03-25 19:01 | ED.ABDPAIN ---
HPI - Abdominal Pain General Chief Complaint: Abdominal Pain Stated Complaint: Abdominal Pain Time Seen by Provider: 03/25/23 19:21 Source: patient and RN notes reviewed Mode of arrival: ambulatory Limitations: no limitations History of Present Illness HPI narrative: 22-year-old female presents concern for right upper quadrant abdominal pain and nausea. Reports symptoms started this morning. She reports she has also started having body aches this morning. She denies diarrhea, she had a normal bowel movement yesterday. She denies urine frequency, urgency, dysuria. She is currently breast-feeding a 9-month-old baby. She denies any breast tenderness, warmth, swelling. She denies upper respiratory infection symptoms such as runny nose, stuffy nose, sore throat, headache. She reports the pain is constant but has intermittent fluctuations of severity without exacerbating or relieving factors. MD elicited complaint: abdominal pain Related Data Allergies Allergy/AdvReac Type Severity Reaction Status Date / Time No Known Allergies Allergy Verified 08/18/22 10:29 Review of Systems Review of Systems: CONSTITUTIONAL: Denies malaise, chills, sweats, or fever. ENT: Denies rhinorrhea, congestion, sinus pain, otalgia or sore throat. CARDIOVASCULAR: Denies chest pain, palpitations, or edema. RESPIRATORY: Denies cough or dyspnea. GASTROINTESTINAL: Reports right upper quadrant abdominal pain, nausea, vomiting. Denies diarrhea, bloody, or mucous stools. GENITOURINARY: Denies dysuria or hematuria. MUSCULOSKELETAL: Reports myalgia. NEUROLOGIC: Denies headache. All systems reviewed & are unremarkable except as noted in HPI and below PMFSH Past Medical History Medical History IUP (intrauterine ), incidental Surgical History Surgical History H/O brain surgery Family History Family History Father Hypertension Diabetes mellitus Mother Hypertension Social History Social History Smoking status: Never smoker Substance use: never Lack of Transportation: No Lack of Food: Never True Current Housing: I Have Housing Concerned About Future Housing: No Difficulty Paying Gas/Electric Bills: No Difficulty Paying for Meds: No Currently Unemployed: No Education: High School Diploma/GED Difficulty w/ Childcare or Family Care: No Spiritual care concerns: No Comments At time of signature, agree with nursing past medical, surgical, social and family history. There is no relevant family history pertinent to the presenting complaint Exam Narrative: GENERAL: Well-appearing, well-nourished, and in no acute distress. HEAD: Normocephalic, atraumatic. EYES: PERRLA, conjunctivae clear, and EOMI. ENT: Nares clear, turbinates pink, no rhinorrhea or epistaxis. Mucous membranes moist. Oropharynx without edema, erythema, or lesions. Tonsils not enlarged and without exudate. NECK: Supple. No lymphadenopathy CHEST: Speaks in full sentences. No respiratory distress. HEART: Regular rate and rhythm. ABDOMEN: Soft, flat, nondistended. General abdominal tenderness. No guarding, rebound tenderness, or rigidity. No pulsatile masses. Bowel sounds present in all four quadrants. No organomegaly. No periumbilical tenderness. No Supra public tenderness or distension. SKIN: Warm, dry, no rash. NEURO: Alert and oriented x3. PSYCH: Normal mood and affect Course Course Emergency Course: I advised patient that based on her exam and tenderness she should seek further evaluation in the emergency room. Patient states that she will go to the emergency room but she will not go until the morning. I advised patient that if her symptoms worsen she should go to the emergency room right away. Anticipatory guidance g
[2023-03-25 19:13] VITALS: BP 123/69; PULSE 73; RESP 16; TEMP 37.4; O2SAT 100
== END 2023-03-25 19:53 | disposition home or self-care (01) ==
PROVIDERS: Emergency Provider Nurse Practitioner
DX: R10.11 Right upper quadrant pain (principal)
CPT/HCPCS: 81003; 99212; G0463

== ENCOUNTER 2023-03-26 13:25 | Emergency (ER) | payer OTHER, SELFPAY | END 2023-03-26 13:53 | disposition left against medical advice (07) | LOC: ANHED 13:46 | DX: Z53.21 Procedure and treatment not carried out due to patient leaving prior to being seen by health care provider (principal) | CPT/HCPCS: 99199 ==

== ENCOUNTER 2024-03-04 17:52 | Emergency (ER) | payer OTHER, SELFPAY ==
--- NOTE | ~2024-03-04 | CT_ITS ---
CLINICAL INDICATION: Abdominal pain nausea and vomiting COMPARISON: . TECHNIQUE: Multiple contiguous axial images of the abdomen and pelvis were performed following the ad ministration of with 100 mL Omnipaque-350 intravenous contrast The dose-length product (DLP) was 608.37 mGy-cm. Automated exposure control and iterative reconstruction technique were employed. FINDINGS/OBSERVATIONS: Visualized lower thorax: The bilateral lung bases are clear. The heart is of normal size, without pericardial effusion. Small hiatal hernia is present. Liver: The liver enhances homogeneously, and is enlarged measuring 21 cm in longitudinal dimension Gallbladder and biliary system: The gallbladder is only minimally distended, and otherwise unremarkable. Pancreas: The pancreas enhances homogeneously without ductal dilatation. Spleen: The spleen enhances homogeneously and is not enlarged measuring 6 cm in longitudinal dimension. Kidneys: The bilateral kidneys enhance symmetrically without hydronephrosis or renal calculi. Adrenal glands: Unremarkable. Gastrointestinal tract: Trace fecal stasis. Appendix: The air-filled appendix is of normal caliber (axial series, image 142) Vasculature: Unremarkable. Lymph nodes: No pathologically enlarged or morphologically suspicious lymph nodes within the retroperitoneum or at the root of the mesentery. Pelvic structures: An oval shaped focus of fluid attenuation is identified within the right hemipelvis measuring 32 x 20 x 38 mm, most consistent with a right ovarian cyst. The uterus is anteverted and anteflexed, and otherwise unremarkable. The bladder is decompressed, and otherwise unremarkable. Body wall and musculoskeletal: No significant degenerative disease within the lower thoracic or lumbosacral spine. IMPRESSION: Hepatomegaly. Right ovarian cyst measuring 3.8 cm in greatest dimension. No additional abnormalities identified Reviewed, dictated and finalized at location A. UNT MANAGER TRAINEE
--- NOTE | ~2024-03-04 | US_ITS ---
EXAM: PELVIC ULTRASOUND HISTORY: lower abd pain, r ovarian cyst COMPARISON: Reference is made to a CT examination of the abdomen and pelvis, performed on the same da y. FINDINGS: UTERUS: 7.5 x 2.7 x 4.8 cm. The uterus is anteverted and anteflexed. The endometrial complex measures 3 mm. RIGHT OVARY: The right ovary is increased in size and heterogeneous in echogenicity measuring 4.2 x 2.8 x 2.8 cm. Arterial and venous flow are identified. A single anechoic avascular focus is identified within the right ovary 2.9 x 2.4 x 2.1 cm, representi ng a simple cyst (perhaps an involuting follicle) for which no further follow-up is needed. LEFT OVARY: The left ovary is unremarkable in echogenicity and size measuring 3.1 x 1.8 x 2.1 cm Both arterial and venous flow are identified. No free fluid is identified within the pelvis. IMPRESSION: Single simple cyst/involuting follicle within the right ovary which is a benign finding in the physi ologic normal range for which no further follow-up is needed. Otherwise, unremarkable sonographic evaluation of the pelvis, as detailed above. Reviewed, dictated and finalized at location A. OLOGY RESEARCH ASSISTANT IMPRESSION: Single simple cyst/involuting follicle within the right ovary which is a benign finding in the physiologic normal range for which no further follow-up is nee ded. Otherwise, unremarkable sonographic evaluation of the pelvis, as detailed above .
[2024-03-04 18:02] VITALS: BP 152/67; PULSE 87; RESP 18; TEMP 36.1; O2SAT 100
[2024-03-04 19:43] VITALS: BP 113/72; PULSE 79; RESP 16; TEMP 36.8; O2SAT 98
[2024-03-04 20:03] VITALS: BP 113/72; PULSE 80; RESP 16; TEMP 36.8; O2SAT 98
[2024-03-04 20:24] LABS: Add Urine Microscopic? YES; Appearance Urine Clear (Clear); Bacteria Urine None Seen /hpf; Bilirubin Urine Negative (Negative); Blood Urine 1+ (Negative); Color Urine Yellow (Yellow); Glucose Urine UA Negative (Negative); Ketones Urine Trace mg/dL (Negative); Leukocyte Esterase Ur Negative LEU/UL (Negative); Nitrate Urine Negative (Negative); Non Pathogenic Casts 0-2; Protein Urine Negative (Negative); RBC Urine 0-2 /hpf (0-2); Specific Grav Ur 1.031 (1.001-1.035); Squamous Epithelial Cell Urine Occasional /hpf (Few); WBC Urine 0-5 /hpf (0-3)
[2024-03-04 20:55] LABS: Influenza A QL RT-PCR Negative (Negative); Influenza B QL RT-PCR Negative (Negative); RSV RNA, RT-PCR Negative (Negative); SARS-CoV-2 RNA PCR Negative (Negative)
[2024-03-04 21:23] LABS: Basophils Percent Auto 0.4 % (0.2-1.2); Eosinophils Absolute Auto 0.1 K/mm3 (0-0.3); Eosinophils Percent Auto 1.7 % (0-4.4); Hematocrit 42.4 % (37.0-47.0); Hemoglobin 14.5 g/dL (12.0-15.0); Immature Granulocyte Absolute 0.01 K/mm3 (0.00-0.031); Immature Granulocyte Percent A 0.1 % (0-0.5); Lymphocytes Absolute Auto 2.85 K/mm3 (0.9-3.2); Lymphocytes Percent Auto 34.3 % (18.3-44.2); Mean Corpuscular HGB Conc 34.2 g/dl (32-36); Mean Corpuscular Hemoglobin 31.1 pg (26-34); Mean Platelet Volume 9.8 fl (7.4-10.4); Monocytes Absolute Auto 0.6 K/mm3 (0.1-0.6); Monocytes Percent Auto 7.7 % (2.6-8.5); Neutrophils Absolute Auto 4.6 K/mm3 (1.3-6.7); Neutrophils Percent Auto 55.8 % (45.5-73.1); Platelet Count Result 355 k/mm3 (150-375); Red Blood Count 4.66 M/mm3 (4.2-5.4); Red Cell Distribution Width 13.2 % (11.5-14.5); White Blood Count 8.3 K/mm3 (4.5-10.0)
--- NOTE | 2024-03-04 21:24 | ED_ITS ---
HPI - Nausea/Vomiting/Diarrhea General Chief complaint: Nausea/Vomiting/Diarrhea Stated complaint: N/V, fatigue Time Seen by Provider: 03/04/24 19:51 Source: patient Mode of arrival: ambulatory Limitations: no limitations History of Present Illness HPI Narrative: Patient is a 23-year-old female who presents the ED with reports of fatigue, nausea, vomiting. Patient reports she has not felt well and felt extremely fatigued states over the last 1 week. She then began having nausea and vomiting yesterday. She reports decreased p.o. intake today with nausea, but denies further vomiting. Reports some lower abdominal cramping. Notes she is currently on her menstrual cycle. Denies fevers. Denies cough or cold symptoms. Denies urinary complaints. Related Data Allergies Allergy/AdvReac Type Severity Reaction Status Date / Time No Known Allergies Allergy Verified 08/18/22 10:29 Review of Systems Review of Systems: All systems reviewed & are unremarkable except as noted in HPI. All systems reviewed & are unremarkable except as noted in HPI and below PMFSH Past Medical History Medical History IUP (intrauterine ), incidental Surgical History Surgical History H/O brain surgery Family History Family History Father Hypertension Diabetes mellitus Mother Hypertension Social History Social History Smoking status: Never smoker Substance use: never Lack of Transportation: No Lack of Food: Never True Current Housing: I Have Housing Concerned About Future Housing: No Difficulty Paying Gas/Electric Bills: No Difficulty Paying for Meds: No Currently Unemployed: No Education: High School Diploma/GED Difficulty w/ Childcare or Family Care: No Spiritual care concerns: No Exam Narrative: GENERAL: Well appearing, well-nourished, non-toxic, in no acute distress. HEAD: Normocephalic, atraumatic. RESPIRATORY: Airway patent, respirations nonlabored. Clear to auscultation bilaterally, no rales, rhonchi, wheezing. CARDIOVASCULAR: Regular rate and rhythm without murmurs, rubs, or gallops. ABDOMINAL: Soft, mild diffuse tenderness throughout lower abdomen, nondistended. Normoactive BS. MUSCULOSKELETAL: Moves all extremities. No gross deformities. SKIN: Warm, dry, normal color. NEURO: A&O X3. Speech clear. PSYCHIATRIC: Appropriate mood and affect. Normal interaction. Course Vital Signs Vital signs: Vital Signs Temperature 97.0 F L 03/04/24 18:02 Pulse Rate 87 03/04/24 18:02 Respiratory Rate 18 03/04/24 18:02 Blood Pressure 152/67 H 03/04/24 18:02 Pulse Oximetry 100 03/04/24 18:02 Oxygen Delivery Room Air 03/04/24 18:02 Temperature 98.3 F 03/04/24 22:47 Pulse Rate 77 03/04/24 22:47 Respiratory Rate 16 03/04/24 22:47 Blood Pressure 122/77 03/04/24 22:47 Pulse Oximetry 100 03/04/24 22:47 Oxygen Delivery Room Air 03/04/24 19:43 MDM - Nausea/Vomiting/Diarrhea MDM Narrative Medical decision making narrative: Patient presented to ED with fatigue, nausea, vomiting, lower abdominal discomfort. Vital signs are stable upon arrival. Patient is afebrile here. Fluids initiated. Viral swabs are negative. Urine with trace ketones, no signs of infection. Basic laboratory studies are unremarkable. No leukocytosis. Stable H&H. Stable electrolytes. TSH within normal range. CT scan of abdomen/pelvis was obtained and without significant abnormalities. Does show a right-sided ovarian cyst. With patient having lower abdominal pain and ovarian cyst on CT, will obtain ultrasound to further evaluate and rule out torsion. U ltrasound showing simple cyst, no evidence for torsion. No other abnormalities noted. No free fluid. Discussed lab and imaging findings with patient. She is feeling better after fluids. Patient will be discharged. Advised to stay well hydrated. Will prescribe Zofran for home. Recommended Tylenol/ibuprofen as needed for pain. Recommended follow-up with OBGYN for further evaluation and continued management of ovarian cyst. Given return precautions. Discharged in stable condition. Medical Records Attestation: I reviewed the patient's medical records. Lab Data Attestation: I reviewed the patient's lab results. 03/04/24 21:17 03/04/24 21:17 Labs: Lab Results 03/04/24 03/04/24 03/04/24 Range/Units 20:00 21:17 21:46 WBC 8.3 (4.5-10.0) K/mm3 RBC 4.66 (4.2-5.4) M/mm3 Hgb 14.5 D (12.0-15.0) g/dL Hct 42.4 (37.0-47.0) % MCV 91.0 (80-100) fl MCH 31.1 (26-34) pg MCHC 34.2 (32-36) g/dl RDW 13.2 (11.5-14.5) % Plt Count 355 D (150-375) k/mm3 MPV 9.8 (7.4-10.4) fl Immature Gran % (Auto) 0.1 (0-0.5) % Neut % (Auto) 55.8 (45.5-73.1) % Lymph % (Auto) 34.3 (18.3-44.2) % [place] % (Auto) 7.7 (2.6-8.5) % Eos % (Auto) 1.7 (0-4.4) % Baso % (Auto) 0.4 (0.2-1.2) % Lymph # (Auto) 2.85 (0.9-3.2) K/mm3 [place] # (Auto) 0.6 (0.1-0.6) K/mm3 Eos # (Auto) 0.1 (0-0.3) K/mm3 Baso # (Auto) 0.0 (0.0-0.1) K/mm3 Abs Immat Gran (auto) 0.01 (0.00-0.031) K/mm3 Absolute Neuts (auto) 4.6 (1.3-6.7) K/mm3 Absolute Nucleated RBC 0.000 (0.0-0.012) K/mm3 Nucleated RBC % 0.0 (0.0-0.2) % Sodium 139 (137-145) mmol/L Potassium 4.1 (3.4-5.0) mmol/L Chloride 101 (98-107) mmol/L Carbon Dioxide 28 (22-30) mmol/L Anion Gap 10 (4-12) mmol/L BUN 21 H D (7-17) mg/dL Creatinine 0.60 L (0.7-1.0) mg/dL Estim Creat Clear Calc 122 ml/min Estimated GFR > 60 (59 - ) Glucose 90 (65-110) mg/dL Calcium 9.4 (8.4-10.2) mg/dL Magnesium 2.2 (1.6-2.3) mg/dL Total Bilirubin 0.8 (0.2-1.3) mg/dL AST 20 (14-36) U/L ALT 18 (6-35) U/L Alkaline Phosphatase 111 (38-126) U/L Total Protein 8.0 (6.3-8.2) g/dL Albumin 4.8 (3.5-5.1) g/dL Lipase 63 (23-300) U/L TSH (Reflex) 1.310 (0.465-4.68) uIU/mL Urine Color Yellow (Yellow) Urine Appearance Clear (Clear) Urine pH 7.0 (5.0-9.0) Ur Specific [place] 1.031 (1.001-1.035) Urine Protein Negative (Negative) mg/dL Urine Glucose (UA) Negative (Negative) mg/dL Urine Ketones Trace H (Negative) mg/dL Ur Blood (Man) 1+ H (Negative) Urine Nitrate Negative (Negative) Urine Bilirubin Negative (Negative) Urine Urobilinogen 1.0 (<2.0) mg/dL Leukocyte Esterase Rfl Negative (Negative) JESUS MANUEL/UL Urine RBC 0-2 (0-2) /hpf Urine WBC 0-5 (0-3) /hpf Ur Squamous Epith Cells Occasional (Few) /hpf Urine Bacteria None seen /hpf Urine Casts 0-2 POC Urine HCG, Qual Negative (Negative) Influenza A (RT-PCR) Negative (Negative) Influenza B (RT-PCR) Negative (Negative) RSV (RT-PCR) Negative (Negative) SARS-CoV-2 RNA (RT-PCR) Negative (Negative) Imaging Data Attestation: I personally reviewed and interpreted this imaging study as follows: Radiologist's impression: ITS Impressions Abdomen/Pelvis CT 03/04/24 22:04 IMPRESSION: Hepatomegaly. Right ovarian cyst measuring 3.8 cm in greatest dimension. No additional abnormalities identified Transvaginal US 03/04/24 23:30 IMPRESSION: Single simple cyst/involuting follicle within the right ovary which is a benign finding in the physiologic normal range for which no further follow-up is needed. Otherwise, unremarkable sonographic evaluation of the pelvis, as detailed above. Discharge Plan Discharge Clinical Impression: Lower abdominal pain Fatigue Qualifiers: Fatigue type: unspecified Qualified Code(s): R53.83 - Other fatigue Ovarian cyst Qualifiers: Laterality: right Qualified Code(s): N83.201 - Unspecified ovarian cyst, right side Patient Disposition: Home, Self-Care Condition: Stable Instructions: Antibiotic Form, Ovarian Cyst (ED), Dehydration (ED), Abdominal Pain (ED) Additional Instructions: Your work up here was reassuring. You do have evidence of a right sided ovarian cyst. Stay well hydrated. Continue Tylenol and ibuprofen as needed for pain. Zofran as needed for further nausea. Follow-up with OBGYN for further evaluation and management of ovarian cyst. Return to the ED if you experience worsening or severe pain, unable to keep down food or drink, persistent fevers, passing out, or any other symptoms of concern. Prescriptions: New ondansetron 4 mg tablet,disintegrating 4 mg PO Q8H PRN (Reason: nausea and vomiting) Qty: 10 0RF Follow-up/Referrals: PHYSICIAN,DIETARY DIRECTOR [Primary Care Provider] - Time of Disposition: 23:41
[2024-03-04 21:35] LABS: Alanine Aminotransferase 18 U/L (6-35); Albumin Level 4.8 g/dL (3.5-5.1); Alkaline Phosphatase 111 U/L (38-126); Anion Gap 10 mmol/L (4-12); Aspartate Amino Transferase 20 U/L (14-36); Bilirubin,Total 0.8 mg/dL (0.2-1.3); Blood Urea Nitrogen 21 mg/dL (7-17); Calcium 9.4 mg/dL (8.4-10.2); Carbon Dioxide 28 mmol/L (22-30); Chloride 101 mmol/L (98-107); Estimated CRCL calculation 122 ml/min; Estimated Glomerular Filt Rate > 60; Glucose 90 mg/dL (65-110); Lipase 63 U/L (23-300); Magnesium 2.2 mg/dL (1.6-2.3); Potassium 4.1 mmol/L (3.4-5.0); Sodium 139 mmol/L (137-145)
[2024-03-04] MEDS: SODIUM CHLORIDE 0.9% IV 1,000 ML 999 ML IV CONT (21:36)
[2024-03-04 21:40] VITALS: BP 137/85; PULSE 74; RESP 16; TEMP 37.3; O2SAT 99
[2024-03-04 21:48] LABS: BEDSIDEPREGUCG Negative (Negative)
[2024-03-04 22:47] VITALS: BP 122/77; PULSE 77; RESP 16; TEMP 36.8; O2SAT 100
== END 2024-03-04 23:46 | disposition home or self-care (01) ==
PROVIDERS: Emergency Provider Physician Assistant
DX: N83.291 Other ovarian cyst, right side (principal); R10.30 Lower abdominal pain, unspecified; R53.83 Other fatigue; R16.0 Hepatomegaly, not elsewhere classified
CPT/HCPCS: 36415; 74177; 76830; 80053; 81001; 81025; 83690; 83735; 84443; 85025; 87637; 96360; 99284; J7030; Q9967

== ENCOUNTER 2024-07-05 17:24 | Emergency (ER) | payer OTHER, SELFPAY ==
--- NOTE | 2024-07-05 17:29 | ED_ITS ---
HPI - URI/Sore Throat General Chief Complaint: Upper Respiratory Infection Stated Complaint: cough,ALBRIGHT,sinus pressure,chest congestion Time Seen by Provider: 07/05/24 17:29 Source: patient Mode of arrival: ambulatory Limitations: no limitations History of Present Illness HPI Narrative: Patient 23-year-old female who presents with 5 days of congestion and sinus pressure/pain. Patient also had headache. Denies any fever, chills, nausea, vomiting, diarrhea, sore throat, ear pain. Has not taken anything for symptoms. Related Data Allergies Allergy/AdvReac Type Severity Reaction Status Date / Time No Known Allergies Allergy Verified 08/18/22 10:29 Review of Systems Review of Systems: All systems reviewed & are unremarkable except as noted in HPI and below Constitutional: Constitutional: Denies chills, Denies fatigue, Denies fever(s), Reports headache(s), Denies malaise and Denies weakness Eyes: Eyes: Denies blurry vision, Denies itchy eyes and Denies loss of vision ENT: Denies otalgia, Reports headache(s), Reports nasal congestion, Reports sinus pain, Reports sinus pressure and Denies sore throat Cardiovascular: Cardiovascular: Denies chest pain, Denies irregular heart rhythm and Denies dyspnea Respiratory: Respiratory: Reports cough and Denies dyspnea Gastrointestinal: Gastrointestinal: Denies abdominal pain, Denies diarrhea, Denies nausea and Denies vomiting Musculoskeletal: Musculoskeletal: Denies back pain, Denies myalgias and Denies arthralgias Integumentary/Breasts: Skin/Breast: Denies pruritus and Denies rash Neurologic: Reports headache(s), Denies loss of vision and Denies weakness Psychiatric: Psychiatric: Reports no additional psychiatric complaints Endocrine: Endocrine: Denies fatigue Allergic/Immunologic: Allergic/Immunologic: Denies itchy eyes PMFSH Past Medical History Medical History IUP (intrauterine ), incidental Surgical History Surgical History H/O brain surgery Family History Family History Father Hypertension Diabetes mellitus Mother Hypertension Social History Social History Smoking status: Never smoker Substance use: never Lack of Transportation: No Lack of Food: Never True Current Housing: I Have Housing Concerned About Future Housing: No Difficulty Paying Gas/Electric Bills: No Difficulty Paying for Meds: No Currently Unemployed: No Education: High School Diploma/GED Difficulty w/ Childcare or Family Care: No Spiritual care concerns: No Comments At time of signature, agree with nursing past medical, surgical, social and family history. There is no relevant family history pertinent to the presenting complaint. Exam Const: General: cooperative, healthy appearing, comfortable, no acute distress and well nourished Nutritional Appearance: well nourished Orientation/consciousness: patient oriented x3 Limitations: no limitations HENMT: Head: normal to inspection, normocephalic and atraumatic Ears: hearing grossly normal bilaterally, external ears normal, TM's normal bilaterally, EAC's normal and no periauricular adenopathy Face/Nose/Sinus: Normal external nose present, Abnormal mucous membranes and turbinates present erythematous bilateral and diffuse, normal facial exam, face symmetric and Facial tenderness on exam of face and sinuses Face and sinus: normal facial exam and face symmetric Mouth: Yes Normal oral and palatal mucosa present, Yes lip normal, Yes tongue normal, Yes Normal salivary glands and ducts present, Yes oropharynx normal and Yes moist mucous membranes Teeth and gingiva: dentition normal Throat: posterior oropharynx normal, tonsils normal and uvula midline Eyes: General: appearance normal, both eyes and all related structures Alignment and Position: alignment normal and position normal Periorbital: periorbital findings normal Eyelids: eyelids normal Pupils: Equal, round and reactive pupils present Neck: Neck: normal visual inspection, full ROM, no lymphadenopathy and supple Chest: Chest palpation & inspection: normal inspection of the chest and normal palpation of entire chest wall Resp: Effort & Inspection: normal respiratory effort and able to speak in complete sentences Auscultation: clear to auscultation bilaterally, no crackles, no rales, no rhonchi and no wheezes Cardio: Rate: regular rate Rhythm: regular rhythm Heart sounds: S1 normal heart sound present and S2 normal heart sound present GI: Inspection: normal to inspection Skin: General skin exam: normal color and no rashes or lesions noted Neuro: General: patient oriented x3 and moves all extremities Cranial nerves: Yes Equal, round and reactive pupils present Speech: normal speech Gait exam (Neuro): Normal gait present Extrem: General: normal to inspection, full ROM and no edema Psych: Appearance: grossly normal and well kempt Mental Status: mental status grossly normal Speech and movement: Normal speech and movement present Affect: normal affect Attitude: cooperative Thought process: Normal thought process present Course Course Emergency Course: Discharge instructions reviewed with patient, as well as provided in writing per nursing staff. The instructions also include specific and strict return/GO TO THE ER as well as f/u information. All questions have been answered, and the patient deny any further questions with discharge and discharge plan. Portions of this record may have been created with voice recognition software Level of Care: Express Care Visit Vital Signs Vital signs: Reviewed MDM - URI/Sore Throat MDM Narrative Medical decision making narrative: Pt well hydrated appearing, in no respiratory distress, hemodynamically stable. Recommend supportive care. The patient is stable at time of discharge the clinical impression was discussed and the patient was given the opportunity to ask questions, which were addressed as completely as possible given the information available at present. Anticipatory guidance and return to care precautions were discussed and the importance of primary care follow-up was stressed and encouraged. The patient voiced understanding of the plan, indic ations to return, and the need for follow-up. Differential diagnosis considered: Bronchitis, Palmer virus, strep pharyngitis, allergic rhinitis, upper respiratory tract infection, sinusitis, rhinosinusitis, nasopharyngitis. viral pharyngitis, otitis media, otitis externa, otitis effusion, foreign body, cerumen impaction, viral syndrome, and influenza.? Exam findings show no acute concerns or changes; patient is non-toxic appearing and is in no distress.? Patient is appropriate for outpatient treatment and follow- up.? Medical Records Attestation: I reviewed the patient's medical records. Discharge Plan Discharge Clinical Impression: Acute bacterial sinusitis Patient Disposition: Home, Self-Care Condition: Stable Instructions: Sinusitis (ED) Additional Instructions: Take antibiotics as prescribed Symptomatic treatment of a sinus infection aims to relieve symptoms. These treatments do not shorten the duration of illness. Nonprescription pain medications, such as acetaminophen (eg, Tylenol) or ibuprofen (eg, Motrin, Advil), are recommended for pain. Flushing the nose and sinuses with a saline solution several times per day has been proven to decrease pain associated with congestion and shorten the duration of symptoms. Nasal steroids (such as Flonase, 2 sprays in each nostril daily) can help to reduce swelling inside the nose, usually within two to three days. These drugs have few side effects and relieve symptoms in most people. Oral decongestants (pseudoephedrine and phenylephrine) may be helpful if you have associated symptoms of ear pain or fullness. Nasal decongestant sprays, including oxymetazoline (Afrin) and phenylephrine (Link-Synephrine), can be used to temporarily treat congestion. However, these sprays should not be used for more than two to three days due to the risk of rebound congestion (when the nose becomes congested constantly unless the medication is used repeatedly), possible addiction, and long-term consequences of frequent use, including persistent nasal dryness and crusting, which is very difficult to treat once it has developed. Medications to thin secretions (such as guaifenesin) may help to clear mucus. Please follow-up with your primary care doctor in the next 1-2 days. If you cannot follow-up with your primary care doctor please go to the ED for any urgent issues. If you have any worsening of symptoms or any other concerns please go to the ED immediately. Patient Language: Green[place]ic Prescriptions: New fluticasone propionate [Flonase Allergy Relief] 50 mcg/actuation spray,suspension 1 spray intranasal DAILY Qty: 16 0RF Rx Instructions: administer into each nostril amoxicillin-pot clavulanate 875-125 mg tablet 1 tablet PO Q12H 7 Days Qty: 14 0RF Follow-up/Referrals: Camilo Mckeon MD [Physician] - 3 Days (Establish care) Stand Alone Forms: Work/School Release IP Time of Disposition: 18:28
[2024-07-05 17:31] VITALS: BP 117/71; PULSE 79; RESP 16; TEMP 36.4; O2SAT 100
== END 2024-07-05 18:42 | disposition home or self-care (01) ==
PROVIDERS: Emergency Provider Nurse Practitioner Family
DX: J01.90 Acute sinusitis, unspecified (principal)
CPT/HCPCS: 99213; G0463

== ENCOUNTER 2025-04-06 14:16 | Emergency (ER) | payer OTHER, SELFPAY ==
[2025-04-06 14:45] VITALS: BP 127/72; PULSE 107; RESP 16; TEMP 36.4; O2SAT 100
--- NOTE | 2025-04-06 14:54 | ED.URI ---
HPI - URI/Sore Throat General Chief Complaint: Upper Respiratory Infection Stated Complaint: fever/sore throat Time Seen by Provider: 04/06/25 14:20 Source: patient Mode of arrival: ambulatory Limitations: no limitations History of Present Illness HPI Narrative: patient is a 24-year-old female who presents with fever, sore throat, body aches and cough that started yesterday. Denies any nausea, vomiting, diarrhea. Denies any known sick contacts. Related Data Allergies Allergy/AdvReac Type Severity Reaction Status Date / Time No Known Allergies Allergy Verified 04/06/25 14:18 Review of Systems Review of Systems: All systems reviewed & are unremarkable except as noted in HPI and below Constitutional: Constitutional: Denies chills, Denies fatigue, Reports fever(s), Denies headache(s), Denies malaise and Denies weakness Eyes: Eyes: Denies blurry vision, Denies itchy eyes and Denies loss of vision ENT: Denies otalgia, Denies headache(s), Reports nasal congestion, Denies sinus pain and Reports sore throat Cardiovascular: Cardiovascular: Denies chest pain, Denies irregular heart rhythm and Denies dyspnea Respiratory: Respiratory: Reports cough and Denies dyspnea Gastrointestinal: Gastrointestinal: Denies abdominal pain, Denies diarrhea, Denies nausea and Denies vomiting Musculoskeletal: Musculoskeletal: Denies back pain, Reports myalgias and Denies arthralgias Integumentary/Breasts: Skin/Breast: Denies pruritus and Denies rash Neurologic: Denies headache(s), Denies loss of vision and Denies weakness Psychiatric: Psychiatric: Reports no additional psychiatric complaints Endocrine: Endocrine: Denies fatigue Allergic/Immunologic: Allergic/Immunologic: Denies itchy eyes PMFSH Past Medical History Medical History IUP (intrauterine ), incidental Surgical History Surgical History H/O brain surgery Family History Family History Father Hypertension Diabetes mellitus Mother Hypertension Social History Social History Smoking status: Never smoker Substance use: never Lack of Transportation: No Lack of Food: Never True Current Housing: I Have Housing Concerned About Future Housing: No Difficulty Paying Gas/Electric Bills: No Difficulty Paying for Meds: No Currently Unemployed: No Education: High School Diploma/GED Difficulty w/ Childcare or Family Care: No Spiritual care concerns: No Comments At time of signature, agree with nursing past medical, surgical, social and family history. There is no relevant family history pertinent to the presenting complaint. Exam Const: General: cooperative, healthy appearing, comfortable, no acute distress and well nourished Nutritional Appearance: well nourished Orientation/consciousness: patient oriented x3 Limitations: no limitations HENMT: Head: normal to inspection, normocephalic and atraumatic Ears: hearing grossly normal bilaterally, external ears normal, TM's normal bilaterally, EAC's normal and no periauricular adenopathy Face/Nose/Sinus: Normal external nose present, Abnormal mucous membranes and turbinates present erythematous bilateral and diffuse, normal facial exam, sinuses nontender and face symmetric Face and sinus: normal facial exam, sinuses nontender and face symmetric Mouth: Yes Normal oral and palatal mucosa present, Yes lip normal, Yes tongue normal, Yes Normal salivary glands and ducts present, Yes oropharynx normal and Yes moist mucous membranes Teeth and gingiva: dentition normal Throat: posterior oropharynx normal, tonsils normal and uvula midline Eyes: General: appearance normal, both eyes and all related structures Alignment and Position: alignment normal and position normal Periorbital: periorbital findings normal Eyelids: eyelids normal Pupils: Equal, round and reactive pupils present Neck: Neck: normal visual inspection, full ROM, no lymphadenopathy and supple Chest: Chest palpation & inspection: normal inspection of the chest and normal palpation of entire chest wall Resp: Effort & Inspection: normal respiratory effort and able to speak in complete sentences Auscultation: clear to auscultation bilaterally, no crackles, no rales, no rhonchi and no wheezes Cardio: Rate: regular rate Rhythm: regular rhythm Heart sounds: S1 normal heart sound present and S2 normal heart sound present GI: Inspection: normal to inspection Skin: General skin exam: normal color and no rashes or lesions noted Neuro: General: patient oriented x3 and moves all extremities Cranial nerves: Yes Equal, round and reactive pupils present Speech: normal speech Gait exam (Neuro): Normal gait present Extrem: General: normal to inspection, full ROM and no edema Psych: Appearance: grossly normal and well kempt Mental Status: mental status grossly normal Speech and movement: Normal speech and movement present Affect: normal affect Attitude: cooperative Thought process: Normal thought process present Course Course Emergency Course: Patient is aware of diagnosis, understands and agrees to treatment plan. Anticipatory guidance given. Patient agrees to follow-up as directed and is aware of reasons to seek care at the emergency department. Portions of this record may have been created with voice recognition software Level of Care: Express Care Visit Vital Signs Vital signs: Vital Signs Temperature 36.4 C 04/06/25 14:45 Pulse Rate 107 H 04/06/25 14:45 Respiratory Rate 16 04/06/25 14:45 Blood Pressure 127/72 04/06/25 14:45 Pulse Oximetry 100 04/06/25 14:45 Temperature 36.4 C 04/06/25 14:45 Pulse Rate 107 H 04/06/25 14:45 Respiratory Rate 16 04/06/25 14:45 Blood Pressure 127/72 04/06/25 14:45 Pulse Oximetry 100 04/06/25 14:45 [facility] Narrative Medical decision making narrative: For patient is positive for influenza A Pt well hydrated appearing, in no respiratory distress, hemodynamically stable. Recommend supportive care. The patient is stable at time of discharge the clinical impression was discussed and the patient was given the opportunity to ask questions, which were addressed as completely as possible given the information available at present. Anticipatory guidance and return to care precautions were discussed and the importance of primary care follow-up was stressed and encouraged. The patient voiced understanding of the plan, indications to return, and the need for follow-up. Exam findings show no acute concerns or changes Patient is appropriate for outpatient treatment and follow-up. Differential Diagnosis Differential Diagnosis: Differential diagnosis considered: Palmer virus, strep pharyngitis, allergic rhinitis, upper respiratory tract infection, sinusitis, rhinosinusitis, nasopharyngitis. viral pharyngitis, otitis media, otitis externa, otitis effusion, foreign body, cerumen impaction, viral syndrome, and influenza. Medical Records I have reviewed the following patient records and this information was taken into consideration when formulating the assessment and plan.: previous clinic visits Lab Data [facility] Lab Attestation statement: I personally reviewed the patient's lab results. Discharge Plan Discharge Clinical Impression: Influenza Patient Disposition: Home Condition: Stable Instructions: Influenza (ED) Additional Instructions: Were positive for influenza A. Your Covid is negative Your symptoms are due to a viral illness, which is not treated with antibiotics. Viral symptoms can be present for up to a few weeks. -For fever/pain, you may take: Tylenol 650-1000mg by mouth every 4-6 hours. Do not exceed 4000mg in 24 hours. Advil (Ibuprofen) 600 mg by mouth every 6 hours. Do not exceed 2400mg in 24 hours. 8 AM: Tylenol 11 AM: Ibuprofen 2 PM: Tylenol 5 PM: Ibuprofen 8 PM: Tylenol 11 PM: Ibuprofen 2 AM: Tylenol 5 AM: Ibuprofen -Antihistamine medication such as Benadryl/Zyrtec at night and Claritin/Areli during the day can help improve symptoms. -Use Flonase twice a day for 5 days then daily to help reduce the inflammation and dry up your sinuses. -You can also use Sudafed behind the pharmacy counter(12 or 24 hour). Be sure to drink plenty of water with these medications at least 8 ounces with every dose and it is important to drink 8 to 10 glasses of water per day. Water is a natural decongestant -Eat and drink things that are easy to swallow, like tea or soup, or popsicles. -Oral rinses such as: Salt water gargles and/or may use topical anesthetic (eg. Chloraseptic spray) or lozenges to relieve dryness or throat pain). -Frequent hand washing or hand stone chimney mason is one of the best ways to prevent spread of infection. -Using a vaporizer or humidifier at night will also help thin secretions and help with coughing up phlegm. -Follow up with primary care provider in 3-5 days if condition is not improving - For new or worsening symptoms go directly to the nearest ER Patient Language: French Prescriptions: New benzonatate 100 mg capsule 100 mg PO BID PRN (Reason: cough) Qty: 14 0RF fluticasone propionate [Flonase Allergy Relief] 50 mcg/actuation spray,suspension 1 spray intranasal DAILY Qty: 16 0RF Rx Instructions: administer into each nostril loratadine 10 mg tablet 10 mg PO DAILY Qty: 30 0RF Follow-up/Referrals: Camilo Mckeon MD [Physician, Family Practice] - 3 Days Stand Alone Forms: Work/School Release IP Time of Disposition: 15:10
[2025-04-06 16:02] LABS: EDCOVIDSCREEN Negative (Negative); EDINFLUASCREEN Positive (Negative); EDINFLUBSCREEN Negative (Negative)
== END 2025-04-06 15:16 | disposition home or self-care (01) ==
PROVIDERS: Emergency Provider Nurse Practitioner Family
DX: J10.1 Influenza due to other identified influenza virus with other respiratory manifestations (principal); Z20.822 Contact with and (suspected) exposure to COVID-19
CPT/HCPCS: 87426; 87804; 99213; G0463